=== PATIENT | male | born 1990 | race American Indian/Alaskan Native ===

== ENCOUNTER 2018-11-25 11:04 | Emergency (ER) | payer SELFPAY ==
--- NOTE | 2018-11-25 11:22 | Event Note ---
ED Screening Note Date of service: 11/25/18 Time: 11:16 ED Screening Note: This is a 28 y.o. M. that presents to the ER with a bump to left lateral calf for 1 week Patient states he went to [facility] Tuesday and told it was a muscle spasm and placed on NSAIDs. Reports swelling went down, increased pain. This initial assessment/diagnostic orders/clinical plan/treatment(s) is/are subject to change based on patients health status, clinical progression and re- assessment by fellow clinical providers in the ED. Further treatment and workup at subsequent clinical providers discretion. Patient/guardian urged not to elope from the ED as their condition may be serious if not clinically assessed and managed. Initial orders include: Doppler LLE
[2018-11-25] MEDS ORDERED: KETOROLAC 60 MG/2 ML INJ IM ONE (12:05)
--- NOTE | 2018-11-25 13:15 | Emergency Department Report ---
<USAMA RAINEY - Last Filed: 11/26/18 03:56> ED Extremity Problem HPI - General Chief complaint: Extremity Problem,Nontraumatic Stated complaint: LT LEG PAIN Time Seen by Provider: 11/25/18 11:16 - Related Data Previous Rx's Medication Instructions Recorded Last Taken Type HYDROcodone/APAP 5-325 [[place] 1 each PO Q6HR PRN #15 tablet 11/25/18 Unknown Rx 5/325] Ibuprofen [Motrin] 800 mg PO Q8HR PRN #30 tablet 11/25/18 Unknown Rx Allergies Allergy/AdvReac Type Severity Reaction Status Date / Time No Known Allergies Allergy Verified 11/25/18 11:17 ED Past Medical Hx - Medications Home Medications: Home Medications Medication Instructions Recorded Confirmed Last Taken Type HYDROcodone/APAP 5-325 [[place] 1 each PO Q6HR PRN #15 tablet 11/25/18 Unknown Rx 5/325] Ibuprofen [Motrin] 800 mg PO Q8HR PRN #30 tablet 11/25/18 Unknown Rx ED Medical Decision Making - Radiology Data Radiology results: report reviewed Ultrasound of the left calf INDICATION / CLINICAL INFORMATION: Left calf pain and swelling. Rule out fluid collection. COMPARISON: None available. FINDINGS: There is a subtle ovoid area of altered echogenicity in the left gastrocnemius muscle laterally at the site of the patient's pain. The abnormality measures 1.7 x 0.8 x 1.1 cm and is slightly hyperechoic compared to the adjacent muscle. No internal vascularity is seen on Doppler exam and the findings may be related to a subtle hematoma. No fluid collection or other abnormality is seen. Signer Name: Juli Green MD Signed: 11/25/2018 5:59 PM Workstation Name: [id number] Transcribed By: RT Dictated By: Juli Green MD Electronically Authenticated By: Juli Green MD Signed Date/Time: 11/25/18 4372 DUPLEX DOPPLER LOWER EXTREMITY VEINS, LEFT INDICATION: Left calf pain and swelling for a week. TECHNIQUE: Duplex doppler imaging was performed through the veins of the left lower extremity using venous compression and other maneuvers. COMPARISON: None available. FINDINGS: Common femoral vein: Negative. Superficial femoral vein: Negative. Popliteal vein: Negative. Calf veins: Negative. Additional findings: There is no evidence of a popliteal cyst or other significant abnormality. IMPRESSION: No sonographic evidence for DVT in the left lower extremity. Signer Name: Juli Green MD Signed: 11/25/2018 5:50 PM Workstation Name: [id number] Transcribed By: RT Dictated By: Juli Green MD Electronically Authenticated By: Juli Green MD Signed Date/Time: 11/25/18 1750 - Medical Decision Making signed out by Dr. Riley, awaiting US results: US without DVT, appears to have subtle hematoma, discussed US findings with pt discussed with pt to take medication as prescribed, do not drive or operate heavy machinery while taking pain medication discussed with pt ice, heating pad, compression, rest, and elevation of the leg pt was referred to Dr. Pacheco, orthopedic return to the ED for any new or worsening symptoms ED Disposition Clinical Impression: Muscle strain Calf pain Qualifiers: Laterality: left Qualified Code(s): M79.662 - Pain in left lower leg Disposition: DC-01 TO HOME OR SELFCARE Is pt being admited?: No Does the pt Need Aspirin: No Condition: Stable Instructions: Muscle Strain (ED) Additional Instructions: Take the medication as prescribed. Follow-up with your doctor or with the doctor/clinic provided. Return if symptoms worsen as indicated by your discharge instructions. may use ice, compression, heat, rest, elevation of the leg Prescriptions: Ibuprofen [Motrin] 800 mg PO Q8HR PRN #30 tablet PRN Reason: Pain, Moderate (4-6) HYDROcodone/APAP 5-325 [[place] 5/325] 1 each PO Q6HR PRN #15 tablet PRN Reason: Pain Referrals: PRIMARY MD BLAYNE [Primary Care Provider] - 3-5 Days JULI PACHECO MD [Staff Physician] - 3-5 Days (orthopedic ) Forms: Work/School Release Form(ED) Time of Disposition: 18:17 Print Language: FAROESE <JESSICA RILEY - Last Filed: 11/26/18 09:16> ED Extremity Problem HPI - General Source: patient Mode of arrival: Ambulatory Limitations: No Limitations - History of Present Illness Initial comments: 28-year-old male with no significant past medical history presents to the hospital complaining of persistent left calf pain and swelling times one week. 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 He woke up one week ago with pain and swelling to left calf. 4 days ago he was seen at [facility] and was told he had a muscle spasm. He reports he had a Doppler that was negative for DVT. He was discharged on Tylenol and Flexeril without improvement. Patient states that he did have some increased swelling to the whole leg 2 days ago that has since resolved. Now he just has persistent tenderness at a localized area of swelling at his left lateral calf. No recent travel, chest pain, shortness of breath, or fever reported. Severity scale (0 -10): 9 ED Review of Systems ROS: Stated complaint: LT LEG PAIN Other details as noted in HPI Comment: All other systems reviewed and negative ED Past Medical Hx - Past Medical History Previous Medical History?: No - Surgical History Past Surgical History?: No - Social History Smoking Status: Never Smoker Substance Use Type: None ED Physical Exam - General Limitations: No Limitations - Other Other exam information: Gen.: No acute distress Head: Atraumatic Eyes: Normal appearance ENT: Moist mucous membranes Neck: Normal appearance, no posterior midline tenderness, no meningismus Chest: Clear to auscultation bilaterally Cardiovascular: Regular rate and rhythm Abdomen: Normal appearance, soft, nontender, no rebound or guarding, normal bowel sounds Back: Normal appearance, nontender Extremity: Full range of motion, normal appearance, patient has a focal area of subcutaneous swelling and tenderness at the left lateral calf. No warmth, erythema, or fluctuance. No generalized swelling noted. Neuro: Alert and oriented 3, clear speech, no focal motor or sensory deficit Psychiatric: Appropriate Skin: No rash ED Course Vital Signs 11/25/18 11/25/18 11/25/18 11:16 12:20 16:30 Temperature 98.4 F 98.1 F Pulse Rate 105 H 96 H Respiratory 18 18 18 Rate Blood Pressure 138/93 134/86 [Right] O2 Sat by Pulse 97 100 Oximetry 11/25/18 18:32 Temperature 98.0 F Pulse Rate 89 Respiratory 18 Rate Blood Pressure 148/93 [Right] O2 Sat by Pulse 100 Oximetry ED Medical Decision Making - Medical Decision Making pt given toradol for pain with some relief - Differential Diagnosis abscess, muscle spasm, DVT Critical Care Time: No Critical care attestation.: If time is entered above; I have spent that time in minutes in the direct care of this critically ill patient, excluding procedure time. ED Disposition Is pt being admited?: No Does the pt Need Aspirin: No
--- NOTE | 2018-11-25 17:55 | Vascular Lab Report ---
DUPLEX DOPPLER LOWER EXTREMITY VEINS, LEFT INDICATION: Left calf pain and swelling for a week. TECHNIQUE: Duplex doppler imaging was performed through the veins of the left lower extremity using venous compr ession and other maneuvers. COMPARISON: None available. FINDINGS: Common femoral vein: Negative. Superficial femoral vein: Negative. Popliteal vein: Negative. Calf veins: Negative. Additional findings: There is no evidence of a popliteal cyst or other significant abnormality. IMPRESSION: No sonographic evidence for DVT in the left lower extremity. Signer Name: Thor Green MD Signed: 11/25/2018 5:50 PM Workstation Name: [id number]
--- NOTE | 2018-11-25 18:20 | Ultrasound Report ---
Ultrasound of the left calf INDICATION / CLINICAL INFORMATION: Left calf pain and swelling. Rule out fluid collection. COMPARISON: None available. FINDINGS: There is a subtle ovoid area of altered echogenicity in the left gastrocnemius muscle laterally at th e site of the patient's pain. The abnormality measures 1.7 x 0.8 x 1.1 cm and is slightly hyperechoic compared to the adjacent muscle. No internal vascularity is seen on Doppler exam and the findings ma y be related to a subtle hematoma. No fluid collection or other abnormality is seen. Signer Name: Thor Green MD Signed: 11/25/2018 5:59 PM Workstation Name: [id number]
[2018-11-25 18:34] VITALS: BP 148/93
== END 2018-11-25 18:33 | disposition home or self-care (01) ==
LOC: ED 11:04
DX: S86.912A Strain of unspecified muscle(s) and tendon(s) at lower leg level, left leg, initial encounter (principal); X58.XXXA Exposure to other specified factors, initial encounter; Y93.89 Activity, other specified; Y92.89 Other specified places as the place of occurrence of the external cause; Y99.8 Other external cause status
CPT/HCPCS: 76882; 93971; 96372; 99283; J1885

== ENCOUNTER 2020-11-08 09:10 | Emergency (ER) | payer SELFPAY ==
[2020-11-08 10:07] VITALS: BP 162/107
--- NOTE | 2020-11-08 11:57 | Emergency Department Report ---
ED Eye Problem HPI - General Chief complaint: Eye Problems Stated complaint: L EYE PAIN Time Seen by Provider: 11/08/20 11:50 Source: patient Mode of arrival: Ambulatory Limitations: No Limitations - History of Present Illness Initial comments: Patient is a 30-year-old male presents emergency room complaints of left eye irritation redness that began last night. He states he has had frequent drainage. He denies any vision changes. He denies any sick contacts. He denies any contact lens use. He denies anything getting into the eye. He denies any eye swelling. No past medical history. No allergies to medications. - Related Data Previous Rx's Medication Instructions Recorded Last Taken Type HYDROcodone/APAP 5-325 [[place] 1 each PO Q6HR PRN #15 tablet 11/25/18 Unknown Rx 5/325] Ibuprofen [Motrin] 800 mg PO Q8HR PRN #30 tablet 11/25/18 Unknown Rx Acetaminophen [Tylenol] 500 mg PO Q6HR PRN #30 tablet 10/12/19 Unknown Rx Albuterol Sulfate [Proventil Hfa] 1 - 2 puff IH Q4H PRN #1 hfa.aer.ad 10/12/19 Unknown Rx Azithromycin [Zithromax Z-BO] 250 mg PO DAILY #6 tablet 10/12/19 Unknown Rx Benzonatate [Tessalon Perles] 100 mg PO Q8HR #30 capsule 10/12/19 Unknown Rx Cetirizine HCl [Zyrtec 10mg tab] 10 mg PO DAILY #30 tablet 10/12/19 Unknown Rx Ondansetron [Zofran Odt] 4 mg PO Q6HR PRN #20 tab.rapdis 10/12/19 Unknown Rx Polymyxin B Sulf/Trimethoprim 1 drop OS Q3HR 7 Days #1 bottle 11/08/20 Unknown Rx [Polytrim Eye Drops] Allergies Allergy/AdvReac Type Severity Reaction Status Date / Time No Known Allergies Allergy Verified 11/08/20 10:07 ED Review of Systems ROS: Stated complaint: L EYE PAIN Other details as noted in HPI Comment: All other systems reviewed and negative ED Past Medical Hx - Social History Smoking Status: Never Smoker Substance Use Type: None - Medications Home Medications: Home Medications Medication Instructions Recorded Confirmed Last Taken Type HYDROcodone/APAP 5-325 [[place] 1 each PO Q6HR PRN #15 tablet 11/25/18 Unknown Rx 5/325] Ibuprofen [Motrin] 800 mg PO Q8HR PRN #30 tablet 11/25/18 Unknown Rx Acetaminophen [Tylenol] 500 mg PO Q6HR PRN #30 tablet 10/12/19 Unknown Rx Albuterol Sulfate [Proventil Hfa] 1 - 2 puff IH Q4H PRN #1 hfa.aer.ad 10/12/19 Unknown Rx Azithromycin [Zithromax Z-BO] 250 mg PO DAILY #6 tablet 10/12/19 Unknown Rx Benzonatate [Tessalon Perles] 100 mg PO Q8HR #30 capsule 10/12/19 Unknown Rx Cetirizine HCl [Zyrtec 10mg tab] 10 mg PO DAILY #30 tablet 10/12/19 Unknown Rx Ondansetron [Zofran Odt] 4 mg PO Q6HR PRN #20 tab.rapdis 10/12/19 Unknown Rx Polymyxin B Sulf/Trimethoprim 1 drop OS Q3HR 7 Days #1 bottle 11/08/20 Unknown Rx [Polytrim Eye Drops] ED Physical Exam - General Limitations: No Limitations General appearance: alert, in no apparent distress - Head Head exam: Present: atraumatic, normocephalic - Eye Eye exam: Present: PERRL, EOMI, conjunctival injection (left), other (no visualized foreign bodies). Absent: periorbital swelling, periorbital tenderness Pupils: Present: normal accommodation - ENT ENT exam: Present: mucous membranes moist - Neurological Exam Neurological exam: Present: alert, oriented X3 - Psychiatric Psychiatric exam: Present: normal affect, normal mood - Skin Skin exam: Present: warm, dry, intact ED Course Vital Signs 11/08/20 10:04 Temperature 98.9 F Pulse Rate 90 Respiratory 18 Rate Blood Pressure 162/107 [Left] O2 Sat by Pulse 98 Oximetry ED Medical Decision Making - Medical Decision Making Patient is a 30-year-old male presents emergency room complaints of left eye irritation redness that began last night. He states he has had frequent drainage. He denies any vision changes. He denies any sick contacts. He denies any contact lens use. He denies anything getting into the eye. He denies any eye swelling. No past medical history. No allergies to medications. Vitals with elevated blood pressure, otherwise stable, encouraged outpatient primary care follow-up and lifestyle modifications. On exam: Left conjunctival injection, EOMI, PERRLA, no periorbital edema or erythema. Examination appears likely consistent with conjunctivitis. Patient given prescription for medication. Advised patient Please use medication as prescribed. Wash your hands frequently. Avoid rubbing the eyes. Follow-up with milking machine operator if symptoms or not improving. Return to emergency room for any new or worsening symptoms. Follow-up with your primary care doctor regarding the elevation in her blood pressure during today's visit. Eat a low-sodium diet. Incorporate 30 to 60 minutes of daily exercise. Increase your water intake. Keep a blood pressure log and take this to the primary care doctor. Critical care attestation.: If time is entered above; I have spent that time in minutes in the direct care of this critically ill patient, excluding procedure time. ED Disposition Clinical Impression: Elevated blood pressure reading Conjunctivitis Qualifiers: Conjunctivitis type: acute Acute conjunctivitis type: unspecified Laterality: left Qualified Code(s): H10.32 - Unspecified acute conjunctivitis, left eye Disposition: 01 HOME / SELF CARE / HOMELESS Is pt being admited?: No Does the pt Need Aspirin: No Condition: Stable Instructions: Viral Conjunctivitis, Adult, Bacterial Conjunctivitis, Adult Additional Instructions: Please use medication as prescribed. Wash your hands frequently. Avoid rubbing the eyes. Follow-up with milking machine operator if symptoms or not improving. Return to emergency room for any new or worsening symptoms. Follow-up with your primary care doctor regarding the elevation in her blood pressure during today's visit. Eat a low-sodium diet. Incorporate 30 to 60 minutes of daily exercise. Increase your water intake. Keep a blood pressure log and take this to the primary care doctor. Prescriptions: Polymyxin B Sulf/Trimethoprim [Polytrim Eye Drops] 1 drop OS Q3HR 7 Days #1 bottle Referrals: HAZEL CISNEROS MD [Primary Care Provider] - 2-3 Days ANN-MARIE ROGER MD [Staff Physician] - 2-3 Days [facility] [Provider Group] - 2-3 Days Time of Disposition: 11:54 Print Language: MACEDONIAN
== END 2020-11-08 12:10 | disposition home or self-care (01) ==
LOC: ED 09:10
DX: H10.9 Unspecified conjunctivitis (principal); R03.0 Elevated blood-pressure reading, without diagnosis of hypertension; Z79.899 Other long term (current) drug therapy